=== PATIENT | female | born 1935 | race African-American/Black ===

== ENCOUNTER 2017-08-09 05:59 | Emergency (ER) | payer MEDICARE, MEDICAID ==
[~2017-08-09] VITALS: Ht 165.1 cm; Wt 79.4 kg
[~2017-08-09 05:59] MED LIST: ACETAMINOPHEN500 M5 PO; DEXILANT60 MG ORAL; HYDROCHLOROTHIA25 MG ORAL; LOVASTATIN20 MG PO; NORVASC10 MG ORAL; POLYTRIM OP SOL10 ML RIGHT EYE; PRANDIN2 MG PO; TRAMADOL HCL50 MG ORAL; TYLENOL325 MG ORAL; VICODIN ES 7.51 EACH ORAL
[2017-08-09] MEDS ORDERED: traMADol 50mg tab ORAL ONE (06:30)
[2017-08-09] MEDS ORDERED: TRAMADOL HCL50 MG ORAL (06:31)
--- NOTE | 2017-08-09 06:32 | Emergency Room Report ---
History of Present Illness General Chief Complaint: Nausea Source: Patient Present Illness HPI Is an 80-year-old female with history of osteoarthritis. She presents with chief complaint of feeling sick. She complaining of bilateral knee pain and numbness in her legs. Also hip pain for the past week. No nausea no vomiting. No fever or chills. Slight congestion. She is out of her Ultram. Allergies: Coded Allergies: CODEINE (Verified Allergy, Unknown, 07/28/15) Patient History Past Medical History: see triage record, old chart reviewed Past Surgical History: other Pertinent Family History: none Social History: Denies: smoking Now: No Immunizations: other Reviewed Nursing Documentation: PMH: Agreed, PSxH: Agreed Nursing Documentation-PMH Hx Asthma: Yes Hx Diabetes: Yes Hx Gastrointestinal Problems: Yes - GERD Review of Systems Eye: Denies: eye pain, blurred vision ENT: Denies: ear pain, nose congestion, throat swelling Respiratory: Denies: cough, shortness of breath Cardiovascular: Denies: chest pain, palpitations Gastrointestinal: Denies: abdominal pain, diarrhea, nausea, vomiting Musculoskeletal: Reports: joint pain, Denies: back pain Skin: Denies: rash Neurological: Denies: headache, numbness Endocrine: Denies: increased thirst, increased urine Hematologic/Lymphatic: Denies: easy bruising All Other Systems: negative except mentioned in HPI Physical Exam Vital Signs Date Time Temp Pulse Resp B/P (MAP) Pulse Ox O2 Delivery O2 Flow Rate FiO2 08/09/17 06:06 98.2 61 16 174/67 99 Room Air vitals normal except for high blood pressure Sp02 EP Interpretation: reviewed, normal General Appearance: well appearing, no apparent distress, alert Head: normocephalic, atraumatic Eyes: bilateral eye PERRL, bilateral eye EOMI ENT: hearing grossly normal, normal pharynx Neck: full range of motion, supple, no meningismus Respiratory: chest non-tender, lungs clear, normal breath sounds Cardiovascular #1: regular rate, rhythm, no murmur Gastrointestinal: normal bowel sounds, non tender, no mass, no organomegaly, no bruit, non-distended Musculoskeletal: back normal, gait/station normal, normal range of motion Psychiatric: mood/affect normal Skin: warm/dry Medical Decision Making Diagnostic Impression: Primary Impression: Arthralgia Qualified Codes: M25.561 - Pain in right knee; M25.562 - Pain in left knee ER Course Present with generalize myalgia and arthralgia. Probably secondary to osteoarthritis and she is out of her medication. Will check blood work nature the Urine for known urinary tract infection. If unremarkable we'll discharge home. Last Vital Signs Date Time Temp Pulse Resp B/P (MAP) Pulse Ox O2 Delivery O2 Flow Rate FiO2 08/09/17 06:06 98.2 61 16 174/67 99 Room Air Status: improved Disposition: HOME, SELF-CARE Condition: Stable Scripts Tramadol Hcl* (ULTRAM*) 50 Mg Tablet 50 MG ORAL BID Y for For Pain, #30 TAB 0 Refills Prov: ALEIDA MORRELL M.D. 08/09/17 Additional Instructions: Followup your Dr. in 7 days. Return if worse. ALEIDA MORRELL M.D. Aug 09, 2017 06:32
[2017-08-09 06:58] LABS: BASOPHILS % (AUTO) 0.2 % (0.0-2.0); HEMATOCRIT 42.8 % (37.0-47.0); LYMPHOCYTES % (AUTO) 29.3 % (20.0-45.0); MEAN CORPUSCULAR VOLUME 88 FL (80-99); MONOCYTES % (AUTO) 5.6 % (1.0-10.0); NEUTROPHILS % (AUTO) 64.8 % (45.0-75.0); PLATELET COUNT 327 K/UL (150-450); RED BLOOD COUNT 4.89 M/UL (4.20-5.40); RED CELL DISTRIBUTION WIDTH 12.6 % (11.6-14.8); WHITE BLOOD COUNT 5.1 K/UL (4.8-10.8)
[2017-08-09 07:11] LABS: APPEARANCE,URINE CLEAR; BILIRUBIN, URINE NEGATIVE (NEGATIVE); COLOR,URINE PALE YELLOW; GLUCOSE, URINE (UA) NEGATIVE (NEGATIVE); KETONES,URINE NEGATIVE (NEGATIVE); LEUKOCYTE ESTERASE ,URINE 3+ (NEGATIVE); NITRITE,URINE NEGATIVE (NEGATIVE); PH,URINE 7 (4.5-8.0); PROTEIN,URINE 2+ (NEGATIVE); UROBILINOGEN,URINE NORMAL MG/DL (0.0-1.0)
[2017-08-09 07:16] LABS: ANION GAP 7 mmol/L (5-15); BLOOD UREA NITROGEN 12 mg/dL (7-18); CALCIUM 9.5 MG/DL (8.5-10.1); CARBON DIOXIDE 31 MMOL/L (21-32); CHLORIDE 101 MMOL/L (98-107); CREATININE 0.8 MG/DL (0.55-1.30); POTASSIUM 3.4 MMOL/L (3.5-5.1); SODIUM 139 MMOL/L (136-145)
[2017-08-09] MEDS ORDERED: NITROFURANTOIN100 M2 ORAL (07:21)
[2017-08-09 07:40] VITALS: BP_SYST 164; BP_SYST 174; BP_DIAS 66; BP_DIAS 67
== END 2017-08-09 07:38 | disposition home or self-care (01) ==
LOC: EMR 06:30
DX: M25.562 Pain in left knee (principal); M25.561 Pain in right knee; E11.9 Type 2 diabetes mellitus without complications; J45.909 Unspecified asthma, uncomplicated; K21.9 Gastro-esophageal reflux disease without esophagitis; Z88.6 Allergy status to analgesic agent
CPT/HCPCS: 36415; 80048; 81001; 85025; 99283

== ENCOUNTER 2018-04-25 21:29 | Emergency (ER) | payer MEDICARE, MEDICAID ==
[~2018-04-25] VITALS: Ht 165.1 cm; Wt 81.2 kg
[~2018-04-25 21:29] MED LIST changes: +NITROFURANTOIN100 M2 ORAL
--- NOTE | 2018-04-25 22:51 | Emergency Room Report ---
History of Present Illness General Chief Complaint: Multiple Trauma/Fall Source: Patient, Medical Record Present Illness HPI Patient is 82-year-old female who presented after a unwitnessed fall. Patient reports having increased pain to her head as well as her neck. Patient had prior history of spinal stenosis in her lumbar spine. Patient started normally ambulatory with a walker. She denies any new the weakness. She reports having a moderate headache. Patient does not know if she taking any blood thinners. Injury occurred just prior to arrival. Patient stated that she fell off of the bed which is approximately 3 feet Allergies: Coded Allergies: CODEINE (Verified Allergy, Unknown, 07/28/15) Patient History Past Medical History: see triage record Last Menstrual Period: Post menopausal Reviewed Nursing Documentation: PMH: Agreed; PSxH: Agreed Nursing Documentation-PMH Past Medical History: No History, Except For Hx Asthma: Yes Hx Diabetes: Yes Hx Gastrointestinal Problems: Yes - GERD; Acid reflux; Diverticulitis; Lower GI bleed 2014 Review of Systems All Other Systems: negative except mentioned in HPI Physical Exam Vital Signs Date Time Temp Pulse Resp B/P (MAP) Pulse Ox O2 Delivery O2 Flow Rate FiO2 04/25/18 21:38 98.8 65 17 134/76 95 Room Air 98.8 Sp02 EP Interpretation: reviewed, normal General Appearance: normal inspection, alert, no apparent distress, GCS 15 Head: atraumatic Eyes: normal eye exam, PERRL, EOMI, lids + conjunctiva normal, no hyphema, no racoon eyes ENT: normal ENT inspection, TMs + canals normal, oropharynx normal, no edwards signs Neck: trach midline, other - limited ROM Respiratory: effort normal, no retractions, clear to auscultation, chest symmetrical, palpation of chest normal, speaking in full sentences Cardiovascular: regular rate, rhythm, no JVD Cardiovascular #2: 2+ radial (R), 2+ radial (L), 2+ dorsalis pedis (R), 2+ dorsalis pedis (L) Gastrointestinal: normal inspection, non-tender, non-distended, no rebound/ guarding, normal bowel sounds Genitourinary: normal inspection Musculoskeletal: other - limited ROM Skin: no rash, no lacerations, normal palpation Lymphatic: normal inspection Neurologic: normal inspection, CN II-XII intact, oriented x3, sensory intact, motor strength/tone normal, normal speech Psychiatric: memory normal, mood normal, no suicidal/homicidal ideation Medical Decision Making Diagnostic Impression: Primary Impression: Neck strain Additional Impression: Head injury ER Course Patient presented after fall. Differential diagnosis included was not limited to neck fracture, CVA, close head injury, syncopal episode, basilar ischemia. Because of complexity of patient's case limaging studies were ordered. CT the head read by radiology showed had noted subacute fracture or intracranial hemorrhage. Age-related white matter changes were noted. The CT cervical spine read by radiology showed multilevel degenerative changes with moderate cervical stenosis at C4-C5. The patient given Tylenol for pain. Patient is advised follow-up with her primary care physician for further evaluation and treatment. Patient was given return precautions. At the time of discharge patient was awake alert and a ambulatory with a walker. Patient was noted to have chronic lumbar stenosis as well. The patient is advised to follow up with primary care doctor in 1-2 days. Patient is advised to return if any worsening condition or if any changes in status that are concerning. This report is dictated with [employer] cracking unit operator software which may occasionally lead to discrepancies related to use of this software. Last Vital Signs Date Time Temp Pulse Resp B/P (MAP) Pulse Ox O2 Delivery O2 Flow Rate FiO2 04/25/18 22:37 98.8 04/25/18 21:38 65 17 134/76 95 Room Air Status: improved Disposition: HOME, SELF-CARE Condition: Stable Scripts Acetaminophen* (ACETAMINOPHEN EXTRA STRENGTH*) 500 Mg Tablet 1000 MG ORAL Q6H for pain, #30 TAB 0 Refills Prov: Julián Campos MD 04/25/18 Julián Campos MD Apr 25, 2018 22:51
[2018-04-25] MEDS ORDERED: ACETAMINOPHEN500 M3 ORAL (22:53)
[2018-04-25 23:15] VITALS: BP 134/76
[2018-04-25 23:53] VITALS: BP_SYST 134; BP_SYST 136; BP_DIAS 69; BP_DIAS 76
--- NOTE | 2018-04-26 09:08 | Diagnostic Imaging Report ---
Indication: Neck pain. Technique: Continuous helical imaging of the cervical spine was obtained transaxially from the skull base to the upper thoracic spine. 2-D coronal and sagittal reformatted images were obtained. Automatic Exposure Control was utilized. Total Dose length Product (DLP): 1689.[address] Dose Index Volume (CTDIvol): 70.38,13.06 mGy Comparison: None Findings: There is no acute fracture or malalignment identified. There is no soft tissue swelling identified. Moderate uncovertebral arthritis is demonstrated at multiple levels, especially at C4-5 and C5-6 with associated foraminal stenosis. Some of the intervertebral discs show narrowing and osteophytes. Impression: No acute injury Moderate spondylosis The CT scanner at [facility] is accredited by the [employer] and the scans are performed using dose optimization techniques as appropriate to a performed exam including Automatic Exposure control.
--- NOTE | 2018-04-26 09:40 | Diagnostic Imaging Report ---
Indication: Headache Technique: Contiguous 5 mm thick transaxial imaging of the head obtained in a Siemens Sensation [address] scanner. Soft tissue and bone windows generated. Automatic Exposure Control was utilized. Total Dose length Product (DLP): 1689.[address] Dose Index Volume (CTDIvol): 70.38,13.06 mGy Comparison: 03/21/2016 Findings: There is mild prominence of the ventricles, basal cisterns, and cerebral sulci consistent with atrophy. Mild, nonspecific, white matter hypoattenuation is noted throughout the brain consistent with chronic small vessel disease. In the left frontal region there is a slight asymmetry of the subdural space with slightly increased low attenuation over the left frontal convexity. This may be an old subdural hematoma. Similar configuration and appearance on the last study from 2015. There is no midline shift, edema, acute hemorrhage, or mass effect identified.. Bones and extra osseous soft tissues are unremarkable. Impression: No acute intracranial bleed, mass effect or edema. Query old, tiny subdural hematoma over the left frontal convexity. Appearance is unchanged from 03/21/2016 Mild atrophy of the brain. Nonspecific white matter hypoattenuation probably due to chronic small vessel disease. The CT scanner at [facility] is accredited by the [employer] and the scans are performed using dose optimization techniques as appropriate to a performed exam including Automatic Exposure control.
== END 2018-04-25 23:55 | disposition home or self-care (01) ==
LOC: EMR 21:59
DX: S13.4XXA Sprain of ligaments of cervical spine, initial encounter (principal); S00.81XA Abrasion of other part of head, initial encounter; W06.XXXA Fall from bed, initial encounter; Y92.092 Bedroom in other non-institutional residence as the place of occurrence of the external cause; R51 Headache; M48.02 Spinal stenosis, cervical region; M48.061 Spinal stenosis, lumbar region without neurogenic claudication; J45.909 Unspecified asthma, uncomplicated; E11.9 Type 2 diabetes mellitus without complications; Z87.891 Personal history of nicotine dependence; Z88.5 Allergy status to narcotic agent
CPT/HCPCS: 70450; 72125; 99284

== ENCOUNTER 2020-05-22 16:29 | Emergency (ER) | payer MEDICARE, MEDICAID ==
[~2020-05-22] VITALS: Ht 165.1 cm; Wt 78.9 kg
[~2020-05-22 16:29] MED LIST changes: +ACETAMINOPHEN500 M3 ORAL
--- NOTE | 2020-05-22 16:42 | NUR ---
ED Nurse Note: PT walked in to ed for c/o generalized body pain for few years and became worse in the last few days.
[2020-05-22 16:59] VITALS: BP 167/71
--- NOTE | 2020-05-22 17:10 | Emergency Room Report ---
History of Present Illness General Chief Complaint: Pain Source: Medical Record Present Illness HPI 84-year-old female with a history of arthritis in the bilateral knees, diabetes, hypertension here with worsening lower extremity pain. Patient says that her extremity pain is in the bilateral lower extremities around the region of the calves and shins and is worse when she walks. Says that she was also diagnosed with kidney stones in the left kidney about a month ago which she says her primary care physician stated they were too small for intervention and told her to simply drink plenty of water. However the patient says that her left flank pain has worsened. Denies fevers, chills, chest pain, palpitations, shortness of breath, midline back pain, other back pain, abdominal pain, diarrhea, dysuria, focal numbness or weakness, saddle anesthesia, urinary or fecal retention or incontinence. No traumas. No IV drug use. She is also stating that she has had diaphoresis on exertion for several weeks. 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 COVID-19 Screening: Negative COVID-19 COVID-19 Testing Source: [place] 1 month ago Nursing Documentation-[facility] Past Medical History: No History, Except For Hx Asthma: Yes Hx Diabetes: Yes Hx Gastrointestinal Problems: Yes - GERD; Acid reflux; Diverticulitis; Lower GI bleed 2014 Review of Systems All Other Systems: negative except mentioned in HPI Physical Exam Vital Signs Date Time Temp Pulse Resp B/P (MAP) Pulse Ox O2 Delivery O2 Flow Rate FiO2 05/22/20 16:41 99.3 63 16 167/71 (103) 95 Room Air Sp02 EP Interpretation: reviewed, normal General Appearance: no apparent distress, alert, GCS 15, non-toxic Head: normocephalic, atraumatic Eyes: bilateral eye normal inspection, bilateral eye PERRL ENT: hearing grossly normal, normal pharynx, no angioedema, normal voice Neck: full range of motion, supple/symm/no masses Respiratory: chest non-tender, lungs clear, normal breath sounds, speaking full sentences Cardiovascular #1: regular rate, rhythm, no edema Cardiovascular #2: 2+ carotid (R), 2+ carotid (L), 2+ radial (R), 2+ radial (L), 2+ dorsalis pedis (R), 2+ dorsalis pedis (L) Gastrointestinal: normal bowel sounds, non tender, soft, non-distended, no guarding, no rebound Rectal: deferred Genitourinary: normal inspection, no CVA tenderness Musculoskeletal: back normal, normal range of motion, gait/station normal, non- tender Neurologic: alert, motor strength/tone normal, oriented x3, sensory intact, responsive, speech normal Psychiatric: judgement/insight normal, memory normal, mood/affect normal, no suicidal/homicidal ideation Lymphatic: no adenopathy Medical Decision Making Diagnostic Impression: Primary Impression: Arthritis Additional Impressions: Generalized pain Generalized pain of knee region ER Course EKG: NSR, no ischemia, intervals WNL. Single PVC. Rate 56 bpm Rhythm strip: patient monitored for arrhythmias - no malignant dysrhythmias, runs of PVCs, nor pauses noted Laboratory Tests Test 05/22/20 17:15 White Blood Count 10.4 K/UL (4.8-10.8) Red Blood Count 4.33 M/UL (4.20-5.40) Hemoglobin 12.1 G/DL (12.0-16.0) Hematocrit 37.2 % (37.0-47.0) Mean Corpuscular Volume 86 FL (80-99) Mean Corpuscular Hemoglobin 27.9 PG (27.0-31.0) Mean Corpuscular Hemoglobin Concent 32.5 G/DL (32.0-36.0) Red Cell Distribution Width 13.6 % (11.6-14.8) Platelet Count 297 K/UL (150-450) Mean Platelet Volume 6.8 FL (6.5-10.1) Neutrophils (%) (Auto) 79.0 % (45.0-75.0) H Lymphocytes (%) (Auto) 14.6 % (20.0-45.0) L Monocytes (%) (Auto) 5.7 % (1.0-10.0) Eosinophils (%) (Auto) 0.0 % (0.0-3.0) Basophils (%) (Auto) 0.7 % (0.0-2.0) Urine Color Yellow Urine Appearance Clear Urine pH 5 (4.5-8.0) Urine Specific [place] 1.015 (1.005-1.035) Urine Protein 1+ (NEGATIVE) H Urine Glucose (UA) Negative (NEGATIVE) Urine Ketones Negative (NEGATIVE) Urine Blood Negative (NEGATIVE) Urine Nitrite Negative (NEGATIVE) Urine Bilirubin Negative (NEGATIVE) Urine Urobilinogen Normal MG/DL (0.0-1.0) Urine Leukocyte Esterase 2+ (NEGATIVE) H Urine RBC 0-2 /HPF (0 - 2) Urine WBC 5-10 /HPF (0 - 2) H Urine Squamous Epithelial Cells Few /LPF (NONE/OCC) Urine Bacteria Few /HPF (NONE) Sodium Level 137 MMOL/L (136-145) Potassium Level 4.0 MMOL/L (3.5-5.1) Chloride Level 103 MMOL/L (98-107) Carbon Dioxide Level 25 MMOL/L (21-32) Anion Gap 9 mmol/L (5-15) Blood Urea Nitrogen 22 mg/dL (7-18) H Creatinine 1.0 MG/DL (0.55-1.30) Estimated Glomerular Filtration Rate > 60 mL/min (>60) Glucose Level 168 MG/DL (74-106) H Calcium Level 9.6 MG/DL (8.5-10.1) Total Bilirubin 0.3 MG/DL (0.2-1.0) Aspartate Amino Transferase (AST) 9 U/L (15-37) L Alanine Aminotransferase (ALT) 11 U/L (12-78) L Alkaline Phosphatase 46 U/L (46-116) Troponin I 0.003 ng/mL (0.000-0.056) Total Protein 7.3 G/DL (6.4-8.2) Albumin 3.6 G/DL (3.4-5.0) Globulin 3.7 g/dL Albumin/Globulin Ratio 1.0 (1.0-2.7) CXR: IMPRESSION: 1. Low lung volumes with bronchovascular crowding. 2. Otherwise no acute cardiopulmonary disease. 3. Prominent right hilar appearance could represent patient rotation, although vascular enlargement or lymphadenopathy can also have this appearance. 4. Recommend CT chest with IV contrast to further characterize right hilar appearance. CT chest: Normal right hilum. Finding on chest radiograph was projectional. No pulmonary embolism or other acute abnormality. Cholecystectomy. Spinal findings consistent with ankylosing spondylitis. Osteopenia. Diverticulosis without diverticulitis 84-year-old female with history of chronic arthritis in the bilateral knees here with worsening bilateral knee pain and lower extremity pain. Patient was given a single dose of tramadol in the emergency department with good resolution of her pain. Patient had a chest x-ray performed that showed questionable right hilar mass versus consolidation versus rotational artifact. CT chest was recommended by radiology. CT chest with IV contrast was performed and showed no acute abnormality and findings consistent with patient's previous history of ankylosing spondylitis. Patient was hemodynamically stable and neurovascular intact in the emergency department. She had a normal EKG and normal CBC, CMP, troponin. She was ambulatory and said that her pain had completely resolved with a single dose of tramadol. She had good peripheral pulses and normal lower extremity perfusion. No worry at this time for claudication given the resolution of her pain and lack of pain on ambulation. She was given a prescription for tramadol to take every 6 hours and will follow up with her primary care provider. Discharged in good condition. Last Vital Signs Date Time Temp Pulse Resp B/P (MAP) Pulse Ox O2 Delivery O2 Flow Rate FiO2 05/22/20 16:59 99.3 80 16 167/71 95 Room Air Scripts Tramadol Hcl* (ULTRAM*) 50 Mg Tablet 50 MG ORAL Q6H PRN for For Pain, #12 TAB 0 Refills Prov: Thor Chen M.D. 05/22/20 Thor Chen M.D. May 22, 2020 17:10
[2020-05-22] MEDS ORDERED: traMADol 50mg tab ORAL ONE (17:15)
--- NOTE | 2020-05-22 17:23 | NUR ---
ED Nurse Note:blood and urine sent to labs
[2020-05-22 17:33] LABS: APPEARANCE,URINE CLEAR; BILIRUBIN, URINE NEGATIVE (NEGATIVE); COLOR,URINE YELLOW; GLUCOSE, URINE (UA) NEGATIVE (NEGATIVE); KETONES,URINE NEGATIVE (NEGATIVE); LEUKOCYTE ESTERASE ,URINE 2+ (NEGATIVE); NITRITE,URINE NEGATIVE (NEGATIVE); PH,URINE 5 (4.5-8.0); PROTEIN,URINE 1+ (NEGATIVE); UROBILINOGEN,URINE NORMAL MG/DL (0.0-1.0)
[2020-05-22 17:40] LABS: BASOPHILS % (AUTO) 0.7 % (0.0-2.0); HEMATOCRIT 37.2 % (37.0-47.0); HEMOGLOBIN 12.1 G/DL (12.0-16.0); LYMPHOCYTES % (AUTO) 14.6 % (20.0-45.0); MEAN CORPUSCULAR VOLUME 86 FL (80-99); MONOCYTES % (AUTO) 5.7 % (1.0-10.0); PLATELET COUNT 297 K/UL (150-450); RED BLOOD COUNT 4.33 M/UL (4.20-5.40); RED CELL DISTRIBUTION WIDTH 13.6 % (11.6-14.8); WHITE BLOOD COUNT 10.4 K/UL (4.8-10.8)
--- NOTE | 2020-05-22 17:41 | Diagnostic Imaging Report ---
EXAM: XR Chest, 1 View CLINICAL HISTORY: CP TECHNIQUE: Frontal view of the chest. COMPARISON: No relevant prior studies available. FINDINGS: Lungs: Low lung volumes with bronchovascular crowding. No consolidation, pleural effusion, or pneumothorax. Pleural space: See above. Heart: Unremarkable. No cardiomegaly. Mediastinum: Unremarkable. Bones/joints: No acute abnormality Lymph nodes: Prominent right hilar appearance could represent patient rotation, although vascular enlargement or lymphadenopathy can also have this appearance. IMPRESSION: 1. Low lung volumes with bronchovascular crowding. 2. Otherwise no acute cardiopulmonary disease. 3. Prominent right hilar appearance could represent patient rotation, although vascular enlargement or lymphadenopathy can also have this appearance. 4. Recommend CT chest with IV contrast to further characterize right hilar appearance.
[2020-05-22 17:44] LABS: ANION GAP 9 mmol/L (5-15); BLOOD UREA NITROGEN 22 mg/dL (7-18); CALCIUM 9.6 MG/DL (8.5-10.1); CARBON DIOXIDE 25 MMOL/L (21-32); CHLORIDE 103 MMOL/L (98-107); SODIUM 137 MMOL/L (136-145)
[2020-05-22 17:54] LABS: ALANINE AMINOTRANSFERASE 11 U/L (12-78); ALBUMIN 3.6 G/DL (3.4-5.0); ALKALINE PHOSPHATASE 46 U/L (46-116); ASPARTATE AMINO TRANSFERASE 9 U/L (15-37); BILIRUBIN,TOTAL 0.3 MG/DL (0.2-1.0)
[2020-05-22] MEDS ORDERED: Omnipaque-300 100ml vial INJ ONE (18:15)
[2020-05-22] MEDS ORDERED: TRAMADOL HCL50 MG ORAL (19:27)
--- NOTE | 2020-05-22 19:34 | Diagnostic Imaging Report ---
EXAM: CT Chest With Intravenous Contrast CLINICAL HISTORY: COUGH TECHNIQUE: Axial computed tomography images of the chest with intravenous contrast. CTDI is 93.70 mGy and DLP is 362.10 mGy-cm. One or more of the following dose reduction techniques were used: automated exposure control, adjustment of the mA and/or kV according to patient size, use of iterative reconstruction technique. COMPARISON: Same-day chest radiographs. FINDINGS: Lungs: Unremarkable. No mass. No consolidation. Pleural space: Unremarkable. No pneumothorax. No significant effusion. Heart: Unremarkable. No cardiomegaly. No significant pericardial effusion. Bones/joints: Spinal findings consistent with ankylosing spondylitis. Osteopenia. No acute fracture. No dislocation. Soft tissues: Unremarkable. Vasculature: No pulmonary embolism. No abnormality identified to account for finding on chest radiograph. Finding on chest radiograph represents mildly more perpendicular course of the right pulmonary artery compared with the left representing normal anatomic variation. No thoracic aortic aneurysm. Lymph nodes: Unremarkable. No enlarged lymph nodes. Gallbladder and bile ducts: Cholecystectomy with biliary ductal prominence likely within normal limits following cholecystectomy; correlate with presentation. Stomach and bowel: Colonic diverticulosis without acute diverticulitis. IMPRESSION: 1. Normal right hilum. Finding on chest radiograph was projectional, please see above for further discussion. 2. No pulmonary embolism or other acute abnormality definitively identified to account for patient presentation. 3. Cholecystectomy with biliary ductal prominence likely within normal limits following cholecystectomy; correlate with presentation. 4. Spinal findings consistent with ankylosing spondylitis. Osteopenia. 5. Colonic diverticulosis without acute diverticulitis.
[2020-05-22 19:35] VITALS: BP 133/79
--- NOTE | 2020-05-22 19:35 | NUR ---
ER DISCHARGE NOTE: Patient is cleared to be discharged per ERMD, pt is aox4, on room air, with stable vital signs. pt was given dc and prescription instructions, pt was able to verbalize understanding, pt id band and iv site removed intact without complications. pt is able to ambulate with walker. pt took all belongings. pt stable upon discharge picked up by son.
--- NOTE | 2020-05-23 19:31 | Cardiology Report ---
APPROVED REPORT EKG Measurement Heart [id number] [place] 196P-19 [id number] <Conclusion> Sinus bradycardia with occasional premature ventricular complexes Otherwise normal ECG
== END 2020-05-22 19:35 | disposition home or self-care (01) ==
LOC: EMR 18:12
DX: M79.662 Pain in left lower leg (principal); M79.661 Pain in right lower leg; M19.90 Unspecified osteoarthritis, unspecified site; R52 Pain, unspecified; E11.9 Type 2 diabetes mellitus without complications; I10 Essential (primary) hypertension; Z88.6 Allergy status to analgesic agent; Z82.3 Family history of stroke; K21.9 Gastro-esophageal reflux disease without esophagitis; K57.90 Diverticulosis of intestine, part unspecified, without perforation or abscess without bleeding; Z90.49 Acquired absence of other specified parts of digestive tract; M45.9 Ankylosing spondylitis of unspecified sites in spine
CPT/HCPCS: 36415; 71045; 71260; 80053; 81003; 84484; 85025; 93005; 99284; Q9965

== ENCOUNTER 2020-09-30 10:20 | Emergency (ER) | payer MEDICARE, MEDICAID ==
[~2020-09-30] VITALS: Ht 172.7 cm; Wt 68.0 kg
[2020-09-30 10:26] VITALS: BP 139/77
[2020-09-30] MEDS ORDERED: traMADol 50mg tab ORAL ONE (10:45)
--- NOTE | 2020-09-30 10:50 | Emergency Room Report ---
History of Present Illness General Chief Complaint: Pain Source: Patient Present Illness HPI 85-year-old female here with lower extremity pain. Patient has a history of arthritis and chronic pain. She has been seen here in the past for similar complaints. Used to take tramadol which she said "sometimes worked but sometimes not." Patient has been taking [place] tens recently without much resolution in the pain. She says the pain is in the bilateral hips and bilateral knees. She recently had a steroid injection in the right knee which she said "did not do anything." Denies trauma, focal numbness or weakness, fevers, chills, urinary or fecal retention or incontinence. Is ambulatory with the help of a walker. Allergies: Coded Allergies: CODEINE (Verified Allergy, Unknown, 07/28/15) COVID-19 Screening Contact w/high risk pt: No Experienced COVID-19 symptoms?: No COVID-19 Testing performed STONE ENGRAVER: No Nursing Documentation-[facility] Past Medical History: No History, Except For Hx Asthma: Yes Hx Diabetes: Yes Hx Gastrointestinal Problems: Yes - GERD; Acid reflux; Diverticulitis; Lower GI bleed 2014 Review of Systems All Other Systems: negative except mentioned in HPI Physical Exam Vital Signs Date Time Temp Pulse Resp B/P (MAP) Pulse Ox O2 Delivery O2 Flow Rate FiO2 09/30/20 10:26 98.8 62 20 139/77 (97) 95 Room Air Sp02 EP Interpretation: reviewed, normal General Appearance: no apparent distress, alert, non-toxic Head: normocephalic, atraumatic Eyes: bilateral eye normal inspection, bilateral eye PERRL ENT: hearing grossly normal, normal pharynx, no angioedema, normal voice Neck: full range of motion, supple/symm/no masses Respiratory: chest non-tender, lungs clear, normal breath sounds, speaking full sentences Cardiovascular #1: regular rate, rhythm, no edema Cardiovascular #2: 2+ carotid (R), 2+ carotid (L), 2+ radial (R), 2+ radial (L), 2+ dorsalis pedis (R), 2+ dorsalis pedis (L) Gastrointestinal: normal bowel sounds, non tender, soft, non-distended, no guarding, no rebound Rectal: deferred Genitourinary: normal inspection, no CVA tenderness Musculoskeletal: back normal, normal range of motion, calf tenderness, gait/station normal, other - Bilateral knee tenderness on palpation without any evidence of erythema or large effusions. Normal range of motion. No evidence of trauma Neurologic: alert, motor strength/tone normal, oriented x3, sensory intact, responsive, speech normal Psychiatric: judgement/insight normal, memory normal, mood/affect normal, no grimes icidal/homicidal ideation Reflexes: 3+ bicep (R), 3+ bicep (L), 3+ tricep (R), 3+ tricep (L), 3+ knee (R), 3+ knee (L) Lymphatic: no adenopathy Medical Decision Making Diagnostic Impression: Primary Impression: Arthritis ER Course Laboratory Tests Test 09/30/20 10:52 White Blood Count 5.6 K/UL (4.8-10.8) Red Blood Count 4.79 M/UL (4.20-5.40) Hemoglobin 12.8 G/DL (12.0-16.0) Hematocrit 42.0 % (37.0-47.0) Mean Corpuscular Volume 88 FL (80-99) Mean Corpuscular Hemoglobin 26.7 PG (27.0-31.0) L Mean Corpuscular Hemoglobin Concent 30.5 G/DL (32.0-36.0) L Red Cell Distribution Width 13.5 % (11.6-14.8) Platelet Count 195 K/UL (150-450) Mean Platelet Volume 7.5 FL (6.5-10.1) Neutrophils (%) (Auto) 59.8 % (45.0-75.0) Lymphocytes (%) (Auto) 33.2 % (20.0-45.0) Monocytes (%) (Auto) 6.0 % (1.0-10.0) Eosinophils (%) (Auto) 0.1 % (0.0-3.0) Basophils (%) (Auto) 0.8 % (0.0-2.0) Sodium Level 137 MMOL/L (136-145) Potassium Level 3.9 MMOL/L (3.5-5.1) Chloride Level 102 MMOL/L (98-107) Carbon Dioxide Level 26 MMOL/L (21-32) Anion Gap 9 mmol/L (5-15) Blood Urea Nitrogen 20 mg/dL (7-18) H Creatinine 1.0 MG/DL (0.55-1.30) Estimated Glomerular Filtration Rate > 60 mL/min (>60) Glucose Level 136 MG/DL (74-106) H Calcium Level 10.3 MG/DL (8.5-10.1) H Total Bilirubin 0.3 MG/DL (0.2-1.0) Aspartate Amino Transferase (AST) 15 U/L (15-37) Alanine Aminotransferase (ALT) 14 U/L (12-78) Alkaline Phosphatase 76 U/L (46-116) Troponin I 0.000 ng/mL (0.000-0.056) Total Protein 8.1 G/DL (6.4-8.2) Albumin 4.0 G/DL (3.4-5.0) Globulin 4.1 g/dL Albumin/Globulin Ratio 1.0 (1.0-2.7) EKG: NSR, no ischemia, intervals WNL. No ectopy. Rate 66 bpm Rhythm strip: patient monitored for arrhythmias - no malignant dysrhythmias, runs of PVCs, nor pauses noted 85-year-old female with history of arthritis and chronic hip and knee pain here with hip and knee pain. Patient says the symptoms have been ongoing for several decades. She has used different medications and recently was switched to [place] tens which she says "are hardly helping." She was given a tramadol in the emergency department and said that she felt somewhat improved. EKG, CBC, CMP, troponin all unremarkable. Patient had normal vital signs throughout her stay in the emergency department. She was told to follow-up with her primary care provider for her chronic pain needs. Discharged in stable condition. Last Vital Signs Date Time Temp Pulse Resp B/P (MAP) Pulse Ox O2 Delivery O2 Flow Rate FiO2 09/30/20 10:26 98.8 62 20 139/77 (97) 95 Room Air Scripts Tramadol Hcl* (ULTRAM*) 50 Mg Tablet 50 MG ORAL Q6H PRN for For Pain, #10 TAB 0 Refills Prov: Thor Chen M.D. 09/30/20 Thor Chen M.D. Sep 30, 2020 10:50
[2020-09-30 11:03] LABS: BASOPHILS % (AUTO) 0.8 % (0.0-2.0); EOSINOPHILS % (AUTO) 0.1 % (0.0-3.0); HEMOGLOBIN 12.8 G/DL (12.0-16.0); LYMPHOCYTES % (AUTO) 33.2 % (20.0-45.0); MEAN CORPUSCULAR VOLUME 88 FL (80-99); NEUTROPHILS % (AUTO) 59.8 % (45.0-75.0); PLATELET COUNT 195 K/UL (150-450); RED BLOOD COUNT 4.79 M/UL (4.20-5.40); RED CELL DISTRIBUTION WIDTH 13.5 % (11.6-14.8); WHITE BLOOD COUNT 5.6 K/UL (4.8-10.8)
[2020-09-30 11:12] LABS: ANION GAP 9 mmol/L (5-15); BLOOD UREA NITROGEN 20 mg/dL (7-18); CALCIUM 10.3 MG/DL (8.5-10.1); CARBON DIOXIDE 26 MMOL/L (21-32); CHLORIDE 102 MMOL/L (98-107); POTASSIUM 3.9 MMOL/L (3.5-5.1); SODIUM 137 MMOL/L (136-145)
[2020-09-30 11:16] LABS: ALANINE AMINOTRANSFERASE 14 U/L (12-78); ALKALINE PHOSPHATASE 76 U/L (46-116); ASPARTATE AMINO TRANSFERASE 15 U/L (15-37); BILIRUBIN,TOTAL 0.3 MG/DL (0.2-1.0)
[2020-09-30] MEDS ORDERED: TRAMADOL HCL50 MG ORAL (11:20)
--- NOTE | 2020-09-30 12:15 | NUR ---
Patient presents to the ER with c/o lower extremity pain. She has a history of artritic and chronic pain which started from the age of 23. Patient states that she take [place] which does not bring resolution to her pain. Independently ambulatory with the aid of a walker. AAOX4.
== END 2020-09-30 12:17 | disposition home or self-care (01) ==
LOC: EMR 12:00
DX: M19.90 Unspecified osteoarthritis, unspecified site (principal); E11.9 Type 2 diabetes mellitus without complications; J45.909 Unspecified asthma, uncomplicated; Z88.5 Allergy status to narcotic agent; Z79.899 Other long term (current) drug therapy
CPT/HCPCS: 36415; 80053; 84484; 85025; 93005; 99283